=== PATIENT | male | born 1990 | race Caucasian/White ===

== ENCOUNTER 2023-04-25 20:37 | Emergency (ER) | payer SELFPAY ==
[~2023-04-25] VITALS: Ht 172.7 cm; Wt 110.0 kg
[2023-04-25 20:43] VITALS: TEMP 98.2; O2SAT 98
[2023-04-25] MEDS ORDERED: MIDAZOLAM HCL 2 MG/2 ML VIAL IM ONE (21:15)
[2023-04-25] MEDS ORDERED: HALOPERIDOL LACTATE 5MG/ML VIAL IM ONE (21:15)
[2023-04-25] MEDS ORDERED: DIPHENHYDRAMINE 50MG/ML VIAL IM PRN (21:15)
[2023-04-25 21:38] VITALS: BP 126/101; PULSE 101; RESP 18
== END 2023-04-25 23:45 | disposition left against medical advice (07) ==
LOC: ER 20:37
DX: F10.129 Alcohol abuse with intoxication, unspecified (principal); F12.90 Cannabis use, unspecified, uncomplicated; F14.90 Cocaine use, unspecified, uncomplicated; Y90.9 Presence of alcohol in blood, level not specified
CPT/HCPCS: 99284